=== PATIENT | female | born 1995 | race Caucasian/White ===

== ENCOUNTER 2017-02-03 16:41 | Emergency (ER) | payer OTHER, MEDICAID ==
[2017-02-03] MEDS ORDERED: IBUPROFEN 400 MG TABLET PO STA (17:10)
[2017-02-03] MEDS ORDERED: PHENAZOPYRIDINE 100 MG TABLET PO STA (17:10)
[2017-02-03] MEDS ORDERED: SULFAMETH/TRIMETH DS 800/160 MG TABLET PO STA (17:10)
[2017-02-03] MEDS ORDERED: ONDANSETRON ODT 4 MG TABLET TL STA (17:13)
[2017-02-03] MEDS ORDERED: ONDANSETRON ODT 4 MG TABLET ONE ×2 (17:17→17:18)
[2017-02-03] MEDS ORDERED: IBUPROFEN 400 MG TABLET PO ONE (17:17)
[2017-02-03] MEDS ORDERED: PHENAZOPYRIDINE 100 MG TABLET PO ONE (17:18)
[2017-02-03] MEDS ORDERED: SULFAMETH/TRIMETH DS 800/160 MG TABLET PO ONE (17:18)
== END 2017-02-03 17:51 | disposition home or self-care (01) ==
DX: R30.0 Dysuria (principal); N30.00 Acute cystitis without hematuria; F17.200 Nicotine dependence, unspecified, uncomplicated
CPT/HCPCS: 81001; 87086; 99283; A9270; Q0162

== ENCOUNTER 2017-02-09 00:52 | Emergency (ER) | payer OTHER, MEDICAID ==
[2017-02-09] MEDS ORDERED: SODIUM CHLORIDE 0.9% 1,000 ML IV STA ×2 (01:36→02:35)
[2017-02-09] MEDS ORDERED: ONDANSETRON 4 MG/2 ML VIAL IVP STA ×2 (01:36→04:00)
[2017-02-09] MEDS ORDERED: FAMOTIDINE 20 MG/50 ML 50 ML IV ONE ×2 (01:37→01:43)
[2017-02-09] MEDS ORDERED: ONDANSETRON 4 MG/2 ML VIAL ONE ×2 (01:43→04:02)
[2017-02-09] MEDS ORDERED: IOPAMIDOL-300 100 ML VIAL IVP ONE (03:12)
[2017-02-09] MEDS ORDERED: KETOROLAC 60 MG/2 ML VIAL IVP STA (03:59)
[2017-02-09] MEDS ORDERED: KETOROLAC 30 MG/ML VIAL ONE (04:02)
== END 2017-02-09 04:17 | disposition home or self-care (01) ==
DX: R11.2 Nausea with vomiting, unspecified (principal); R07.9 Chest pain, unspecified; R06.00 Dyspnea, unspecified; F17.200 Nicotine dependence, unspecified, uncomplicated
CPT/HCPCS: 36415; 71020; 71275; 80053; 80320; 82009; 83690; 85025; 96374; 96375; 96376; 99283; 99284; Q9967

== ENCOUNTER 2018-06-05 12:45 | Emergency (ER) | payer MEDICAID, OTHER ==
[2018-06-05 13:39] LABS: BILIRUBIN,URINE NEGATIVE (NEGATIVE); GLUCOSE, URINE (UA) NEGATIVE (NEGATIVE); KETONES,URINE (UA) 15 mg/dL (NEGATIVE); LEUKOCYTE ESTERASE, URINE NEGATIVE (NEGATIVE); NITRITE,URINE NEGATIVE (NEGATIVE); OCCULT BLOOD,URINE NEGATIVE (NEGATIVE); PROTEIN,URINE NEGATIVE (NEGATIVE); UROBILINOGEN,URINE 2 E.U./dL (NORMAL)
--- NOTE | 2018-06-05 13:40 | ED Physician Documentation ---
History of Present Illness - Stated complaint Stated Complaint: VOMITING - Chief complaint Chief Complaint: Abd Pain - Additonal information Additional information: hx from pt 22 y/o f to ED with 2 CC 1) UTI sx - seen in clinic yesterday - dip neg - cx pending - no pelvic or STD testing as pt told PMD there was no chance she could have been exposed because she was monogamous - sx persist - no fever no flank pain - on OCP 2) after drinking alcohol last night developed epigastric pain and then vomited dark blood and then brown old blood, no blood in BM, feels a little weak Review of Systems Constitutional: denies: Fever Cardiac: denies: Chest pain / pressure GI: reports: Abdominal Pain (epigastric), Hematemesis. denies: Bloody / black stool : reports: Dysuria, LMP (05/19). 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 : None HEENT: None Psych: Depression, Anxiety, Panic attacks Derm: None - Past Surgical History Past Surgical History: Yes - Present Medications Home Medications: Ambulatory Orders Medication Instructions Recorded Confirmed Bcp 02/03/17 Sertraline [Zoloft] 25 mg PO DAILY 02/03/17 02/09/17 Ondansetron HCl [Zofran] 4 mg PO Q6HR PRN #14 tablet 02/09/17 Ondansetron Odt [Zofran] 4 mg TL Q6H PRN #10 tablet 06/05/18 Sucralfate 1 gm PO ACHS #120 tablet 06/05/18 raNITIdine [Zantac] 150 mg PO BID #60 tablet 06/05/18 - Allergies Allergies/Adverse Reactions: Allergies Allergy/AdvReac Type Severity Reaction Status Date / Time No Known Drug Allergies Allergy Verified 02/09/17 01:13 - Social History Does the pt smoke?: Yes Smoking Status: Current every day smoker Does the pt drink ETOH?: Yes Does the pt have substance abuse?: Yes - Immunizations Immunizations are current?: Yes - POLST Patient has POLST: No PD ED PE NORMAL - Vitals Vital signs reviewed: Yes - Cardiac Cardiac: RRR - Respiratory Respiratory: No respiratory distress, Clear bilaterally - Abdomen Abdomen: Soft, Other (mid TTP epigastric and mild TTP suprapubic) - Back Back: No CVA TTP - Neuro Neuro: Alert and oriented X 3 Results - Vitals Vitals: Vital Signs - 24 hr 06/05/18 13:01 Temperature 36.6 C Heart Rate 66 Respiratory 16 Rate Blood Pressure 121/58 L O2 Saturation 99 Oxygen O2 Source Room air - Labs Labs: Laboratory Tests 06/05/18 06/05/18 06/05/18 13:15 13:15 13:50 WBC 11.0 H RBC 4.47 Hgb 13.2 Hct 39.5 MCV 88.2 MCH 29.4 MCHC 33.4 RDW 13.6 Plt Count 280 MPV 7.8 L Neut # (Auto) 9.0 H Lymph # (Auto) 1.4 L [place] # (Auto) 0.5 Eos # (Auto) 0.0 Baso # (Auto) 0.0 Absolute Nucleated RBC 0.00 Nucleated RBC % 0.0 Sodium Potassium Chloride Carbon Dioxide Anion Gap BUN Creatinine Estimated GFR (MDRD) Glucose Calcium Total Bilirubin AST ALT Alkaline Phosphatase Total Protein Albumin Globulin Albumin/Globulin Ratio Lipase Urine Color DARK YELLOW Urine Clarity CLEAR Urine pH 8.0 H Ur Specific [place] 1.020 1.020 Urine Protein NEGATIVE Urine Glucose (UA) NEGATIVE Urine Ketones 15 H Urine Occult Blood NEGATIVE Urine Nitrite NEGATIVE Urine Bilirubin NEGATIVE Urine Urobilinogen 2 H Ur Leukocyte Esterase NEGATIVE Ur Microscopic Review NOT INDICATED Urine Culture Comments NOT INDICATED Urine HCG, Qual NEGATIVE 06/05/18 13:50 WBC RBC Hgb Hct MCV MCH MCHC RDW Plt Count MPV Neut # (Auto) Lymph # (Auto) [place] # (Auto) Eos # (Auto) Baso # (Auto) Absolute Nucleated RBC Nucleated RBC % Sodium 136 Potassium 3.6 Chloride 103 Carbon Dioxide 24 Anion Gap 9.0 BUN 9 Creatinine 0.7 Estimated GFR (MDRD) 107 Glucose 145 H Calcium 9.1 Total Bilirubin 1.5 H AST 22 ALT 11 Alkaline Phosphatase 47 Total Protein 8.0 Albumin 4.3 Globulin 3.7 Albumin/Globulin Ratio 1.2 Lipase 18 L Urine Color Urine Clarity Urine pH Ur Specific [place] Urine Protein Urine Glucose (UA) Urine Ketones Urine Occult Blood Urine Nitrite Urine Bilirubin Urine Urobilinogen Ur Leukocyte Esterase Ur Microscopic Review Urine Culture Comments Urine HCG, Qual - Rads (name of study) ruq sono Radiology: See rad report (nl GB) PD MEDICAL DECISION MAKING - Sepsis Event Vital Signs: Vital Signs - 24 hr 06/05/18 13:01 Temperature 36.6 C Heart Rate 66 Respiratory 16 Rate Blood Pressure 121/58 L O2 Saturation 99 Oxygen O2 Source Room air Departure - Departure Disposition: Home, Self Care Clinical Impression: Hemorrhagic gastritis Qualifiers: Gastritis type: alcoholic Chronicity: acute Qualified Code(s): K29.21 - Alcoholic gastritis with bleeding Condition: Good Instructions: ED PUD Vs Gastritis Follow-Up: Felicity Reza MD [Primary Care Provider] - Giovanni Velazquez MD [Provider Admit Priv/Credential] - Prescriptions: Ondansetron Odt [Zofran] 4 mg TL Q6H PRN #10 tablet PRN Reason: Nausea / Vomiting raNITIdine [Zantac] 150 mg PO BID #60 tablet Sucralfate 1 gm PO ACHS #120 tablet Comments: I called your doctors office and the urine culture is not resulted yet - but the antibiotics seem to be working because there is no bacteria on the urine sample today - we are also running culture tests and the ER staff will call you if different antibiotics are needed The blood count was fine - I think it is safe for you to go home on medications to help your stomach heal. If you continue to have upper abdominal pain and / or vomit or poop more blood you should call the surgery office to schedule an appointment and discuss getting a scope of your stomach The gallbladder ultrasound was fine Return to the ER if worse
[2018-06-05 13:41] LABS: CLARITY,URINE CLEAR (CLEAR)
[2018-06-05] MEDS ORDERED: FAMOTIDINE 20 MG TABLET PO STA (13:41)
[2018-06-05] MEDS ORDERED: SUCRALFATE 1 GM/10 ML UDC PO STA (13:41)
[2018-06-05] MEDS ORDERED: ONDANSETRON ODT 4 MG TABLET TL STA (13:41)
[2018-06-05 13:42] LABS: HCG UR QUAL NEGATIVE
[2018-06-05 13:57] LABS: BASOPHILS % (AUTO) 0.4 %; EOSINOPHILS % (AUTO) 0.1 %; HGB - HEMOGLOBIN 13.2 g/dL (12.0-16.0); LYMPHOCYTES # (AUTO) 1.4 10^3/uL (1.5-3.5); MEAN CORPUSCULAR HEMOGLOBIN 29.4 pg (27.0-31.0); MEAN CORPUSCULAR HGB CONC 33.4 g/dL (32.0-36.0); MEAN CORPUSCULAR VOLUME 88.2 fL (81.0-99.0); MEAN PLATELET VOLUME 7.8 fL (7.9-10.8); MONOCYTES # (AUTO) 0.5 10^3/uL (0.0-1.0); MONOCYTES % (AUTO) 4.7 %; NEUTROPHILS % (AUTO) 81.8 %; PLT - PLATELET COUNT 280 10^3/uL (130-450); RED BLOOD COUNT 4.47 10^6/uL (4.20-5.40); RED CELL DISTRIBUTION WIDTH 13.6 % (12.0-15.0)
[2018-06-05 14:09] LABS: ALBUMIN 4.3 g/dL (3.2-5.5); ALBUMIN/GLOBULIN RATIO 1.2 (1.0-2.2); BILIRUBIN,TOTAL 1.5 mg/dL (0.2-1.0); CALCIUM 9.1 mg/dL (8.5-10.3); CREATININE 0.7 mg/dL (0.4-1.0)
--- NOTE | 2018-06-05 18:42 | Ultrasound Report ---
Procedure Date: 06/05/2018 Accession Number: [id number] / [id number] Procedure: US - Abdomen Limited CPT Code: FULL RESULT: EXAM: ABDOMEN ULTRASOUND LIMITED, RUQ EXAM DATE: 06/05/2018 05:28 PM. CLINICAL HISTORY: Ruq abd pain elev WBC elev bili. COMPARISON: None. TECHNIQUE: Real-time scanning was performed with static images obtained. FINDINGS: Liver: Normal in size and echotexture. 15.5 cm. Main portal vein flow: Hepatopetal. Gallbladder: Normal. No stones, wall thickening, or sonographic Romero's sign. Biliary System: CBD measures 3 mm. No intrahepatic or extrahepatic ductal dilatation. Other: No right hydronephrosis. The visualized pancreas is unremarkable. IMPRESSION: Normal. No cholelithiasis or cholecystitis. RADIA
[2018-06-05 19:03] VITALS: BP 135/72
== END 2018-06-05 19:02 | disposition home or self-care (01) ==
LOC: ED 12:45
DX: K29.21 Alcoholic gastritis with bleeding (principal); F17.200 Nicotine dependence, unspecified, uncomplicated
CPT/HCPCS: 36415; 76705; 80053; 81003; 81025; 83690; 85025; 87491; 87591; 99283; A9270; Q0162; 81001; 87086

== ENCOUNTER 2018-06-16 21:19 | Emergency (ER) | payer OTHER ==
[2018-06-16 21:34] LABS: MUDS CUTOFF CONCENTRATIONS CUTOFF CONC BELOW:
[2018-06-16 21:36] LABS: BILIRUBIN,URINE NEGATIVE (NEGATIVE); GLUCOSE, URINE (UA) NEGATIVE (NEGATIVE); KETONES,URINE (UA) NEGATIVE (NEGATIVE); LEUKOCYTE ESTERASE, URINE TRACE (NEGATIVE); NITRITE,URINE NEGATIVE (NEGATIVE); OCCULT BLOOD,URINE TRACE-INTA (NEGATIVE); PH,URINE 5.5 PH (5.0-7.5); PROTEIN,URINE NEGATIVE (NEGATIVE); UROBILINOGEN,URINE 0.2 (NORMAL) E.U./dL (NORMAL)
[2018-06-16 21:38] LABS: BASOPHILS % (AUTO) 0.5 %; CLARITY,URINE HAZY (CLEAR); EOSINOPHILS # (AUTO) 0.1 10^3/uL (0.0-0.7); EOSINOPHILS % (AUTO) 0.8 %; HGB - HEMOGLOBIN 13.7 g/dL (12.0-16.0); LYMPHOCYTES # (AUTO) 2.5 10^3/uL (1.5-3.5); MEAN CORPUSCULAR HEMOGLOBIN 30.5 pg (27.0-31.0); MEAN CORPUSCULAR HGB CONC 34.6 g/dL (32.0-36.0); MEAN CORPUSCULAR VOLUME 88.3 fL (81.0-99.0); MONOCYTES # (AUTO) 0.4 10^3/uL (0.0-1.0); MONOCYTES % (AUTO) 4.8 %; NEUTROPHILS # (AUTO) 4.4 10^3/uL (1.5-6.6); NEUTROPHILS % (AUTO) 59.9 %; PLT - PLATELET COUNT 294 10^3/uL (130-450); RED BLOOD COUNT 4.49 10^6/uL (4.20-5.40); RED CELL DISTRIBUTION WIDTH 14.7 % (12.0-15.0); WHITE BLOOD COUNT 7.4 x10^3/uL (4.8-10.8)
[2018-06-16 21:50] LABS: BACTERIA,URINE Few /HPF (None Seen); RBC,URINE 0-5 /HPF (0-5); SQUAMOUS EPITHELIAL CELL,UR FEW Squamous (<= Few)
[2018-06-16 21:51] LABS: AMPHETAMINE SCREEN,URINE NEGATIVE (NEGATIVE); BENZODIAZEPINES SCREEN, URINE NEGATIVE (NEGATIVE); COCAINE SCREEN URINE NEGATIVE (NEGATIVE); METHADONE SCREEN, URINE NEGATIVE (NEGATIVE); METHAMPHETAMINES SCREEN, URINE NEGATIVE (NEGATIVE); OPIATE SCREEN, URINE NEGATIVE (NEGATIVE); OXYCODONE SCREEN, URINE NEGATIVE (NEGATIVE); PROPOXYPHENE SCREEN, URINE NEGATIVE (NEGATIVE); TRICYCLIC ANTIDEPRESSANT,URINE NEGATIVE (NEGATIVE)
[2018-06-16 22:00] LABS: ALKALINE PHOSPHATASE 46 IU/L (42-121); ALT ALANINE AMINOTRANSFERASE 11 IU/L (10-60); AST ASPARTATE AMINOTRANSFERASE 17 IU/L (10-42); BUN - BLOOD UREA NITROGEN 7 mg/dL (6-20); CALCIUM 9.1 mg/dL (8.5-10.3); CARBON DIOXIDE - CO2 26 mmol/L (21-32); CHLORIDE 105 mmol/L (101-111); CREATININE 0.7 mg/dL (0.4-1.0); GFR - MDRD 107 (>89); GLUCOSE 100 mg/dL (70-100); LIPASE 23 U/L (22-51); SALICYLATE < 6.0 mg/dL; SODIUM 142 mmol/L (135-145); TOTAL PROTEIN 8.1 g/dL (6.7-8.2)
--- NOTE | 2018-06-16 22:10 | ED Physician Documentation ---
History of Present Illness - Stated complaint Stated Complaint: MHE - Chief complaint Chief Complaint: MHE - History obtained from History obtained from: Patient - Additonal information Additional information: 22-year-old female was brought to the emergency department for evaluation of intoxication. The patient uses marijuana daily basis and recently has been consuming alcohol on a daily basis. The patient's mother this evening told her that she needed help. The patient then told her boyfriend that she felt worthless because of this. The police were called and the patient was brought to the emergency department for suicidal ideations and intoxication. The patient reports any suicidal ideations or attempts at self-harm. The patient denies any acute medical complaints. 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: Yes - Immunizations Immunizations are current?: Yes - POLST Patient has POLST: No PD ED PE NORMAL - General General: Alert and oriented X 3, No acute distress - HEENT HEENT: Atraumatic, PERRL, EOMI, Ears normal - Neck Neck: Supple, no meningeal sign - Cardiac Cardiac: RRR - Respiratory Respiratory: No respiratory distress - Derm Derm: Normal color - Extremities Extremities: No deformity, Normal ROM s pain - Neuro Neuro: Alert and oriented X 3, 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, No motor deficit, Normal speech - Psych Psych: Normal mood, Normal affect Results - Vitals Vitals: Vital Signs - 24 hr 06/16/18 06/16/18 21:20 22:20 Temperature 36.4 C L Heart Rate 109 H 90 Respiratory 22 18 Rate Blood Pressure 137/88 H 120/88 H O2 Saturation 100 100 Oxygen O2 Source Room air - Labs Labs: Laboratory Tests 06/16/18 06/16/18 06/16/18 21:30 21:30 21:30 WBC 7.4 RBC 4.49 Hgb 13.7 Hct 39.6 MCV 88.3 MCH 30.5 MCHC 34.6 RDW 14.7 Plt Count 294 MPV 8.0 Neut # (Auto) 4.4 Lymph # (Auto) 2.5 [place] # (Auto) 0.4 Eos # (Auto) 0.1 Baso # (Auto) 0.0 Absolute Nucleated RBC 0.00 Nucleated RBC % 0.1 Sodium 142 Potassium 3.5 Chloride 105 Carbon Dioxide 26 Anion Gap 11.0 BUN 7 Creatinine 0.7 Estimated GFR (MDRD) 107 Glucose 100 Calcium 9.1 Total Bilirubin 1.0 AST 17 ALT 11 Alkaline Phosphatase 46 Total Protein 8.1 Albumin 4.0 Globulin 4.1 Albumin/Globulin Ratio 1.0 Lipase 23 Serum HCG, Qual NEGATIVE Urine Color YELLOW Urine Clarity HAZY Urine pH 5.5 Ur Specific [place] 1.010 Urine Protein NEGATIVE Urine Glucose (UA) NEGATIVE Urine Ketones NEGATIVE Urine Occult Blood TRACE-INTA Urine Nitrite NEGATIVE Urine Bilirubin NEGATIVE Urine Urobilinogen 0.2 (NORMAL) Ur Leukocyte Esterase TRACE H Urine RBC 0-5 Urine WBC 4-5 Ur Squamous Epith Cells FEW Squamous Urine Bacteria Few Ur Microscopic Review INDICATED Urine Culture Comments INDICATED Salicylates < 6.0 Urine Opiates Screen NEGATIVE Ur Oxycodone Screen NEGATIVE Urine Methadone Screen NEGATIVE Ur Propoxyphene Screen NEGATIVE Acetaminophen < 10 L Ur Barbiturates Screen NEGATIVE Ur Tricyclics Screen NEGATIVE Ur Phencyclidine Scrn NEGATIVE Ur Amphetamine Screen NEGATIVE U Methamphetamines Scrn NEGATIVE U Benzodiazepines Scrn NEGATIVE Urine Cocaine Screen NEGATIVE U Cannabinoids Screen POSITIVE H Ethyl Alcohol 251.8 PD MEDICAL DECISION MAKING - ED course ED course: The patient Was intoxicated this evening, the patient denies having any suicidal or homicidal ideations. The patient's mother is here, the patient's mother feels comfortable taking the child home with her. The patient's mother sober. The patient's mother feels comfortable assuming responsibility and will monitor the child at her residence. The patient has an appointment tomorrow with her primary care physician. I discussed warning signs and recommended returning to the emergency department immediately for worsening or any concerns - Sepsis Event Vital Signs: Vital Signs - 24 hr 06/16/18 06/16/18 21:20 22:20 Temperature 36.4 C L Heart Rate 109 H 90 Respiratory 22 18 Rate Blood Pressure 137/88 H 120/88 H O2 Saturation 100 100 Oxygen O2 Source Room air Departure - Departure Disposition: 01 Home, Self Care Clinical Impression: Intoxication Condition: Good Instructions: ED Alcohol Intoxication Follow-Up: Felicity Reza MD [Primary Care Provider] - Comments: Please return to the emergency department for worsening symptoms or any concerns
[2018-06-16 22:49] LABS: ACETAMINOPHEN < 10 ug/mL (10-30); HCG,QUALITATIVE BLOOD NEGATIVE
[2018-06-16 22:56] VITALS: BP 121/85
== END 2018-06-16 22:55 | disposition home or self-care (01) ==
LOC: EDUNIT# → ED 21:19
DX: F10.120 Alcohol abuse with intoxication, uncomplicated (principal); F12.90 Cannabis use, unspecified, uncomplicated; F17.200 Nicotine dependence, unspecified, uncomplicated
CPT/HCPCS: 36415; 80053; 80306; 80307; 80320; 80329; 81001; 81003; 83690; 84703; 85025; 87086; 99283; 99284

== ENCOUNTER 2018-11-17 12:25 | Emergency (ER) | payer MEDICAID, OTHER ==
[2018-11-17] MEDS ORDERED: oxyCODONE 5 MG TABLET PO STA (12:55)
--- NOTE | 2018-11-17 12:58 | ED Physician Documentation ---
History of Present Illness - Stated complaint Stated Complaint: JAW PX - Chief complaint Chief Complaint: Heent - History obtained from History obtained from: Patient, Family (mom) - History of Present Illness Timing: Other (She is a history of grinding her teeth and can has chronic jaw pain because of it. 3 days ago she was accidentally sort of head butted by her large dog and now has severe pain on the right side of the jaw. She actually saw an oral surgeon after that proved prescribed her painkillers but the pain is worse today. She also has right maxillary sinus tenderness and discharge as well as a low-grade fever at home. 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 : None HEENT: None Psych: Depression, Anxiety, Panic attacks Derm: None - Past Surgical History Past Surgical History: Yes - Present Medications Home Medications: Ambulatory Orders Medication Instructions Recorded Confirmed Amox/Clav 875/125 [Augmentin] 1 each PO Q12H #20 tablet 11/17/18 Hydrocodone/Acetaminophen 1 - 2 each PO Q6H PRN #14 tablet 11/17/18 [Hydrocodon-Acetaminophen 5-325] - Allergies Allergies/Adverse Reactions: Allergies Allergy/AdvReac Type Severity Reaction Status Date / Time No Known Drug Allergies Allergy Verified 11/17/18 12:32 - Social History Does the pt smoke?: Yes Smoking Status: Current every day smoker Does the pt drink ETOH?: Yes Does the pt have substance abuse?: Yes - Immunizations Immunizations are current?: Yes - POLST Patient has POLST: No PD ED PE NORMAL - Vitals Vital signs reviewed: Yes - General General: Alert and oriented X 3, No acute distress - HEENT HEENT: PERRL, EOMI, Ears normal, Other (Tender over the right maxillary sinus with lots of rhinorrhea, she is tender over the mandible. No obvious dental injury or infection.) - Neck Neck: Supple, no meningeal sign, No bony TTP - Neuro Neuro: Alert and oriented X 3, Normal speech - Psych Psych: Normal mood, Normal affect Results - Vitals Vitals: Vital Signs - 24 hr 01/13/19 12:30 Temperature 37.1 C Heart Rate 97 Respiratory 18 Rate Blood Pressure 140/86 H O2 Saturation 98 Oxygen O2 Source Room air - Rads (name of study) Mandible XR Radiology: EMP read contemporaneously (normal) Departure - Departure Disposition: 01 Home, Self Care Clinical Impression: Contusion of mandibular joint area Qualifiers: Encounter type: initial encounter Qualified Code(s): S00.83XA - Contusion of other part of head, initial encounter Sinusitis Qualifiers: Sinusitis location: maxillary Chronicity: acute Recurrence: non-recurrent Qual ified Code(s): J01.00 - Acute maxillary sinusitis, unspecified Condition: Good Instructions: ED Sinusitis Abx Tx Prescriptions: Amox/Clav 875/125 [Augmentin] 1 each PO Q12H #20 tablet Hydrocodone/Acetaminophen [Hydrocodon-Acetaminophen 5-325] 1 - 2 each PO Q6H PRN #14 tablet PRN Reason: pain Comments: Follow-up with the oral surgeon this week. Return for new or worsening symptoms. Do not drink or drive while taking narcotic pain medication. Note that many narcotic pain relievers also contain Tylenol/acetaminophen. Please ensure that your total dose of acetaminophen from all sources does not exceed 3 g (3000 mg) per day. You may get constipated while on this medication. Take a stool softener such as Colace twice a day while you are on it. Also add an [id number]-rjudlrt laxative such as senna or MiraLAX on any day that you do not have a bowel movement. If you received a narcotic pain medication or sedative while in the emergency department, do not drive for the next 24 hours. Your blood pressure was elevated today on check into the emergency department. This does not mean that you have hypertension, it is a common phenomenon to come to the emergency department and have elevated blood pressure. I recommend that you see your primary care physician within the week to have it rechecked when you are feeling better.
--- NOTE | 2018-11-17 14:04 | XRAY Report ---
Reason: jaw inj Procedure Date: 11/17/2018 Accession Number: [id number] / [id number] Procedure: XR - Mandible Bilat CPT Code: FULL RESULT: EXAM: MANDIBLE RADIOGRAPHY EXAM DATE: 11/17/2018 01:17 PM. HISTORY: Jaw injury. COMPARISONS: None. TECHNIQUE: 4 views. FINDINGS: Bones: No fractures or bone lesions. Temporomandibular Joints: The temporomandibular joints appear symmetric and within normal limits. Sinuses: Within normal limits. Other: Within normal limits. IMPRESSION: No apparent radiographic abnormality. RADIA
[2018-11-17 14:22] VITALS: BP 130/88
== END 2018-11-17 14:21 | disposition home or self-care (01) ==
LOC: ED 12:25
DX: S00.83XA Contusion of other part of head, initial encounter (principal); W54.1XXA Struck by dog, initial encounter; J01.00 Acute maxillary sinusitis, unspecified; F17.200 Nicotine dependence, unspecified, uncomplicated; R03.0 Elevated blood-pressure reading, without diagnosis of hypertension
CPT/HCPCS: 70110; 99283; A9270

== ENCOUNTER 2019-01-30 11:54 | Emergency (ER) | payer MEDICAID, OTHER ==
[2019-01-30 12:23] LABS: BASOPHILS # (AUTO) 0.1 10^3/uL (0.0-0.1); BASOPHILS % (AUTO) 1.2 %; EOSINOPHILS # (AUTO) 0.1 10^3/uL (0.0-0.7); EOSINOPHILS % (AUTO) 1.4 %; HGB - HEMOGLOBIN 14.9 g/dL (12.0-16.0); LYMPHOCYTES # (AUTO) 0.9 10^3/uL (1.5-3.5); MEAN CORPUSCULAR HEMOGLOBIN 29.2 pg (27.0-31.0); MEAN CORPUSCULAR HGB CONC 33.8 g/dL (32.0-36.0); MEAN CORPUSCULAR VOLUME 86.4 fL (81.0-99.0); MEAN PLATELET VOLUME 8.3 fL (7.9-10.8); MONOCYTES # (AUTO) 0.8 10^3/uL (0.0-1.0); MONOCYTES % (AUTO) 11.2 %; NEUTROPHILS # (AUTO) 5.6 10^3/uL (1.5-6.6); NEUTROPHILS % (AUTO) 74.2 %; PLT - PLATELET COUNT 257 10^3/uL (130-450); RED BLOOD COUNT 5.11 10^6/uL (4.20-5.40); RED CELL DISTRIBUTION WIDTH 15.4 % (12.0-15.0); WHITE BLOOD COUNT 7.5 x10^3/uL (4.8-10.8)
[2019-01-30 12:26] LABS: BILIRUBIN,URINE NEGATIVE (NEGATIVE); GLUCOSE, URINE (UA) NEGATIVE (NEGATIVE); KETONES,URINE (UA) NEGATIVE (NEGATIVE); LEUKOCYTE ESTERASE, URINE NEGATIVE (NEGATIVE); NITRITE,URINE NEGATIVE (NEGATIVE); OCCULT BLOOD,URINE SMALL (NEGATIVE); PROTEIN,URINE NEGATIVE (NEGATIVE); UROBILINOGEN,URINE 0.2 (NORMAL) E.U./dL (NORMAL)
[2019-01-30 12:36] LABS: ALBUMIN 4.4 g/dL (3.2-5.5); ALBUMIN/GLOBULIN RATIO 1.2 (1.0-2.2); BILIRUBIN,TOTAL 0.9 mg/dL (0.2-1.0); CALCIUM 9.1 mg/dL (8.5-10.3); CREATININE 0.7 mg/dL (0.4-1.0); TOTAL PROTEIN 8.2 g/dL (6.7-8.2)
[2019-01-30 12:43] LABS: CLARITY,URINE HAZY (CLEAR); HCG UR QUAL NEGATIVE
[2019-01-30 12:44] LABS: BACTERIA,URINE Many /HPF (None Seen); RBC,URINE 0-5 /HPF (0-5); SQUAMOUS EPITHELIAL CELL,UR MANY Squamous (<= Few)
[2019-01-30 12:45] LABS: CRYSTALS,URINE 11-25 Ca Oxalate /LPF; MUCUS,URINE Few Strands
[2019-01-30] MEDS ORDERED: MECLIZINE 12.5 MG TABLET PO STA (13:33)
[2019-01-30] MEDS ORDERED: ONDANSETRON ODT 4 MG TABLET TL STA (13:33)
[2019-01-30] MEDS ORDERED: DEXAMETHASONE 10 MG/ML VIAL PO STA (13:33)
--- NOTE | 2019-01-30 13:36 | ED Physician Documentation ---
PD HPI NVD - Stated complaint Stated Complaint: VOMITING - Chief complaint Chief Complaint: Abd Pain - History obtained from History obtained from: Patient - History of Present Illness Timing - onset: How many days ago (2) Timing - duration: Days (2) Timing - details: Gradual onset, Still present Associated symptoms: Dizzy. No: Fever, Abdominal pain Contributing factors: No: Sick contact Improved by: Laying still Worsened by: Moving Similar symptoms before: Diagnosis (gastroentertitis) Recently seen: Not recently seen - Additonal information Additional information: Previously well 23-year-old female has developed acute dizziness followed by nausea and vomiting about 2 days ago. She has had some diarrhea with this as well. Her dizziness persists and she has some pain in her right ear. She denies any cough or congestion. She has not had a fever. Review of Systems Constitutional: denies: Fever, Chills, Myalgias Eyes: denies: Decreased vision Ears: reports: Ear pain. denies: Loss of hearing Nose: denies: Rhinorrhea / runny nose, Congestion Throat: denies: Sore throat Cardiac: denies: Chest pain / pressure, Palpitations Respiratory: denies: Dyspnea, Cough GI: reports: Nausea, Vomiting, Diarrhea. 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 : None HEENT: None Psych: Depression, Anxiety, Panic attacks Derm: None - Past Surgical History Past Surgical History: Yes - Present Medications Home Medications: Ambulatory Orders Medication Instructions Recorded Confirmed Amox/Clav 875/125 [Augmentin] 1 each PO Q12H #20 tablet 11/17/18 Hydrocodone/Acetaminophen 1 - 2 each PO Q6H PRN #14 tablet 11/17/18 [Hydrocodon-Acetaminophen 5-325] Meclizine [Antivert] 25 mg PO Q6H PRN #20 tablet 01/30/19 Ondansetron Odt [Zofran] 4 mg TL Q6H PRN #10 tablet 01/30/19 - Allergies Allergies/Adverse Reactions: Allergies Allergy/AdvReac Type Severity Reaction Status Date / Time No Known Drug Allergies Allergy Verified 01/30/19 12:01 - Social History Does the pt smoke?: Yes Smoking Status: Current every day smoker Does the pt drink ETOH?: Yes Does the pt have substance abuse?: Yes - Immunizations Immunizations are current?: Yes - POLST Patient has POLST: No PD ED PE NORMAL - Vitals Vital signs reviewed: Yes (hypertensive) - General General: Alert and oriented X 3, No acute distress, Well developed/nourished - HEENT HEENT: Atraumatic, PERRL, EOMI, Other (ear canals are tiny and crocked. There are 3 beats of nystagmus to the right. 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, No motor deficit, No sensory deficit, Normal speech Eye Opening: Spontaneous Motor: Obeys Commands Verbal: Oriented GCS Score: 15 - Psych Psych: Normal mood, Normal affect Results - Vitals Vitals: Vital Signs - 24 hr 01/30/19 01/30/19 11:59 13:48 Temperature 36.4 C L Heart Rate 87 Respiratory 18 18 Rate Blood Pressure 137/86 H O2 Saturation 99 Oxygen O2 Source Room air - Labs Labs: Laboratory Tests 01/30/19 01/30/19 01/30/19 12:14 12:14 12:17 WBC 7.5 RBC 5.11 Hgb 14.9 Hct 44.1 MCV 86.4 MCH 29.2 MCHC 33.8 RDW 15.4 H Plt Count 257 MPV 8.3 Neut # (Auto) 5.6 Lymph # (Auto) 0.9 L [place] # (Auto) 0.8 Eos # (Auto) 0.1 Baso # (Auto) 0.1 Absolute Nucleated RBC 0.00 Nucleated RBC % 0.0 Sodium 134 L Potassium 3.6 Chloride 99 L Carbon Dioxide 24 Anion Gap 11.0 BUN 8 Creatinine 0.7 Estimated GFR (MDRD) 106 Glucose 102 H Calcium 9.1 Total Bilirubin 0.9 AST 21 ALT 14 Alkaline Phosphatase 53 Total Protein 8.2 Albumin 4.4 Globulin 3.8 Albumin/Globulin Ratio 1.2 Lipase 23 Urine Color YELLOW Urine Clarity HAZY Urine pH 6.0 Ur Specific [place] >=1.030 H Urine Protein NEGATIVE Urine Glucose (UA) NEGATIVE Urine Ketones NEGATIVE Urine Occult Blood SMALL H Urine Nitrite NEGATIVE Urine Bilirubin NEGATIVE Urine Urobilinogen 0.2 (NORMAL) Ur Leukocyte Esterase NEGATIVE Urine RBC 0-5 Urine WBC 0-3 Ur Squamous Epith Cells MANY Squamous H Urine Crystals 11-25 Ca Oxalate Urine Bacteria Many H Urine Mucus Few Strands Ur Microscopic Review INDICATED Urine Culture Comments NOT INDICATED Urine HCG, Qual NEGATIVE Procedures - IVC sono (time) 1330 Bedside IVC sono: IVC measures (cm) (0.93), IVC collapsed c insp (cm) (complete), Dehydration (est 1-2 liter deficit.) PD MEDICAL DECISION MAKING - ED course Complexity details: reviewed old records, reviewed results, re-evaluated patient, considered differential, d/w patient ED course: 23 y/o female with n/v/d and dizziness has some nystagmus on exam and she is amenable to attempting TL zofran and fluid challenge. She is administered dexamethasone 10 mg, meclizine 25 mg and Zofran 4 mg TL. She has improvement in her dizziness and her nausea and feels improved. Departure - Departure Disposition: 01 Home, Self Care Clinical Impression: Labyrinthitis of right ear, Dehydration Vomiting Qualifiers: Vomiting type: unspecified Vomiting Intractability: non-intractable Nausea presence: with nausea Qualified Code(s): R11.2 - Nausea with vomiting, unspecified Condition: Stable Instructions: ED Dehydration, ED Diet Vomiting Diarrhea, ED Labyrinthitis Follow-Up: Felicity Reza MD [Primary Care Provider] - Prescriptions: Meclizine [Antivert] 25 mg PO Q6H PRN #20 tablet PRN Reason: Dizziness Ondansetron Odt [Zofran] 4 mg TL Q6H PRN #10 tablet PRN Reason: Nausea / Vomiting Forms: Activity restrictions
[2019-01-30 14:26] VITALS: BP 127/78
== END 2019-01-30 14:24 | disposition home or self-care (01) ==
LOC: ED 11:54
DX: H83.01 Labyrinthitis, right ear (principal); E86.0 Dehydration; F17.200 Nicotine dependence, unspecified, uncomplicated
CPT/HCPCS: 36415; 80053; 81001; 81025; 83690; 85025; 99283; A9270; Q0162; 81003; 87086

== ENCOUNTER 2019-02-05 16:30 | Outpatient (CLI) | payer MEDICAID | END 2019-02-05 23:59 | disposition home or self-care (01) | LOC: LAB.R 16:30 | PROVIDERS: ATTEND Physician Assistant Medical | DX: Z20.2 Contact with and (suspected) exposure to infections with a predominantly sexual mode of transmission (principal) | CPT/HCPCS: 87491; 87591 ==

== ENCOUNTER 2019-02-06 08:00 | Outpatient (CLI) | payer MEDICAID ==
[2019-02-07 13:01] LABS: HIV AG/AB 4TH GEN NON-REACTIVE (NON-REACTIVE)
[2019-02-08 12:02] LABS: HSV 1 IGG TYPE SPECIFIC AB <0.90 index; HSV 2 IGG TYPE SPECIFIC AB <0.90 index
== END 2019-02-06 23:59 | disposition home or self-care (01) ==
LOC: LAB.WCP 08:00
PROVIDERS: ATTEND Physician Assistant Medical
DX: Z20.2 Contact with and (suspected) exposure to infections with a predominantly sexual mode of transmission (principal)
CPT/HCPCS: 36415; 81599; 86592; 86695; 86696; 87389

== ENCOUNTER 2019-02-14 11:28 | Emergency (ER) | payer MEDICAID ==
[2019-02-14] MEDS ORDERED: ALBUTEROL NEB 2.5 MG/3 ML INH STA (12:25)
[2019-02-14] MEDS ORDERED: BENZONATATE 100 MG CAPSULE PO STA (12:28)
--- NOTE | 2019-02-14 12:32 | ED Physician Documentation ---
PD HPI URI - Stated complaint Stated Complaint: COUGH - Chief complaint Chief Complaint: Resp - History obtained from History obtained from: Patient - History of Present Illness Timing - onset: How many days ago (3) Timing duration: Days (3) Timing details: Gradual onset Pain level max: 2 Pain level now: 2 Associated symptoms: Nasal congestion, Rhinorrhea, Dry cough, Dyspnea. No: Fever, Chills, Sore throat, Hemoptysis, Chest pain Contributing factors: Sick contact, COPD / asthma (has used inhalers, does smoke). 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 : None HEENT: None Psych: Depression, Anxiety, Panic attacks Derm: None - Past Surgical History Past Surgical History: Yes - Present Medications Home Medications: Ambulatory Orders Medication Instructions Recorded Confirmed Albuterol Sulf [Ventolin Hfa 1 - 2 puffs INH Q4HR PRN #1 inhaler 02/14/19 Inhaler] Benzonatate [Tessalon Perle] 100 - 200 mg PO TID PRN #30 capsule 02/14/19 - Allergies Allergies/Adverse Reactions: Allergies Allergy/AdvReac Type Severity Reaction Status Date / Time No Known Drug Allergies Allergy Verified 02/14/19 11:33 - Social History Does the pt smoke?: Yes Smoking Status: Current every day smoker Does the pt drink ETOH?: Yes Does the pt have substance abuse?: Yes - Immunizations Immunizations are current?: Yes - POLST Patient has POLST: No PD ED PE NORMAL - Vitals Vital signs reviewed: Yes - General General: Alert and oriented X 3, No acute distress - HEENT HEENT: Ears normal, Moist mucous membranes, Pharynx benign - Neck Neck: Supple, no meningeal sign - Cardiac Cardiac: RRR - Respiratory Respiratory: No respiratory distress, Other (dimished BS bibasilar) - Abdomen Abdomen: Soft, Non tender, Non distended - Derm Derm: Warm and dry - Extremities Extremities: No edema - Neuro Neuro: Alert and oriented X 3 - Psych Psych: Normal mood, Normal affect Results - Vitals Vitals: Vital Signs - 24 hr 02/14/19 02/14/19 02/14/19 11:32 12:43 13:14 Temperature 37.1 C 36.2 C L Heart Rate 108 H 90 96 Respiratory 22 18 18 Rate Blood Pressure 116/72 118/73 O2 Saturation 97 100 Oxygen O2 Source Room air PD MEDICAL DECISION MAKING - ED course Complexity details: re-evaluated patient, considered differential, d/w patient ED course: 23-year-old female is well-appearing, nontoxic. Afebrile. Feels better after nebulizer treatment. No hypoxia. No evidence of pneumonia. Will prescribe an inhaler for home and follow-up with her doctor for further care. Patient counseled regarding signs and symptoms for which I believe and urgent re- evaluation would be necessary. Patient with good understanding of and agreement to plan and is comfortable going home at this time This document was made in part using voice recognition software. While efforts are made to proofread this document, sound alike and grammatical errors may occur. Departure - Departure Disposition: Home, Self Care Clinical Impression: Viral URI with cough Condition: Good Instructions: ED URI Viral W Wheezing Follow-Up: Felicity Rzea MD [Primary Care Provider] - Within 1 week Prescriptions: Albuterol Sulf [Ventolin Hfa Inhaler] 1 - 2 puffs INH Q4HR PRN #1 inhaler PRN Reason: Shortness Of Air/Wheezing Benzonatate [Tessalon Perle] 100 - 200 mg PO TID PRN #30 capsule PRN Reason: Cough Comments: Use the medications as prescribed. Return if you worsen. Follow-up with your doctor for further care. Forms: Activity restrictions
[2019-02-14 13:15] VITALS: BP 118/73
== END 2019-02-14 13:25 | disposition home or self-care (01) ==
LOC: ED 11:28
DX: J06.9 Acute upper respiratory infection, unspecified (principal); B97.89 Other viral agents as the cause of diseases classified elsewhere; F17.200 Nicotine dependence, unspecified, uncomplicated
CPT/HCPCS: 94640; 94664; 99283; A9270

== ENCOUNTER 2022-04-05 18:12 | Emergency (ER) | payer MEDICAID, OTHER ==
[2022-04-05 18:33] VITALS: BP 154/78
--- NOTE | 2022-04-05 18:54 | ED Physician Documentation ---
History of Present Illness - Stated complaint Stated Complaint: DOG BITE ON FACE - Chief complaint Chief Complaint: Wound - History obtained from History obtained from: Patient - History of Present Illness Timing: Today Pain level max: 3 Pain level now: 1 - Additonal information Additional information: Patient is a 26-year-old female who presents to the emergency department after a dog bite to the face at work today. She denies any bleeding. She states that she has numbness around the left eye. She states that one of the teeth went into her right nostril. The other was on her forehead. No visual changes. Mild swelling to the right side of the face. Tetanus is up-to-date. She is not , breast-feeding or trying to become . 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: None : None HEENT: None Psych: Depression, Anxiety, Panic attacks Derm: None - Past Surgical History Past Surgical History: Yes - Present Medications Home Medications: Ambulatory Orders Medication Instructions Recorded Confirmed Amox/Clav 875/125 [Augmentin] 1 tab PO Q12H #14 tablet 04/05/22 - Allergies Allergies/Adverse Reactions: Allergies Allergy/AdvReac Type Severity Reaction Status Date / Time No Known Drug Allergies Allergy Verified 02/14/19 11:33 - Social History Does the pt smoke?: Yes Smoking Status: Current every day smoker Does the pt drink ETOH?: Yes Does the pt have substance abuse?: Yes - Immunizations Immunizations are current?: Yes - POLST Patient has POLST: No PD ED PE NORMAL - Vitals Vital signs reviewed: Yes - General General: Alert and oriented X 3, No acute distress - HEENT HEENT: PERRL, EOMI, Moist mucous membranes, Other (Small abrasion to the forehead and inner aspect of the right nare. No active bleeding. No laceration. Normal examination of the face.) - Neck Neck: Supple, no meningeal sign - Cardiac Cardiac: RRR - Respiratory Respiratory: No respiratory distress, Clear bilaterally - Derm Derm: Warm and dry - Neuro Neuro: Alert and oriented X 3, binman 2-12 intact - Psych Psych: Normal mood, Normal affect Results - Vitals Vitals: Vital Signs - 24 hr 04/05/22 18:30 Temperature 36.2 C L Heart Rate 74 Respiratory 16 Rate Blood Pressure 154/78 H O2 Saturation 100 Oxygen O2 Source Room air PD MEDICAL DECISION MAKING - ED course Complexity details: considered differential, d/w patient ED course: Patient with dog bite to the face. No lacerations to repair. She apparently did have some bleeding from the right nare, therefore will place on antibiotics. We will have her follow-up with her doctor for further care. Patient counseled regarding signs and symptoms for which I believe and urgent re-evaluation would be necessary. Patient with good understanding of and agreement to plan and is comfortable going home at this time This document was made in part using voice recognition software. While efforts are made to proofread this document, sound alike and grammatical errors may occur. Departure - Departure Disposition: 01 Home, Self Care Clinical Impression: Dog bite Qualifiers: Encounter type: initial encounter Qualified Code(s): W54.0XXA - Bitten by dog, initial encounter Condition: Good Instructions: ED Bite Animal General Follow-Up: your,doctor as needed [Other] Prescriptions: Amox/Clav 875/125 [Augmentin] 1 tab PO Q12H #14 tablet Comments: Please take all antibiotics until gone. You can use Motrin or Tylenol as needed for pain and/or swelling. Ice may help as well. Return if you worsen. This should improve over the next 24 hours. Your prescriptions were sent to [facility] in [place] Discharge Date/Time: 04/05/22 19:10
[2022-04-05] MEDS: AMOX/CLAV 875 MG/125 MG TABLET PO STA (18:58)
== END 2022-04-05 19:10 | disposition home or self-care (01) ==
LOC: ED 18:12
DX: S01.25XA Open bite of nose, initial encounter (principal); W54.0XXA Bitten by dog, initial encounter; Y99.0 Civilian activity done for income or pay; F17.200 Nicotine dependence, unspecified, uncomplicated
CPT/HCPCS: 1040M; 99282; A9270

== ENCOUNTER 2023-03-25 11:28 | Emergency (ER) | payer SELFPAY ==
--- NOTE | 2023-03-25 14:31 | ED Physician Documentation ---
PD HPI ABD PAIN - Stated complaint Stated Complaint: FEMALE - Chief complaint Chief Complaint: Abd Pain - History obtained from History obtained from: Patient - Additional information Additional information: The patient presents to the emergency department chief complaint of constipation. She feels as though she needs to have a bowel movement but just cannot push it out. She states the sensation started a few hours ago and she has faced great difficulty when trying to stool because she feels as though she has a large, hard impacted lump of stool in her rectum. The patient states that just prior to my arrival in the room, she was able to sit on the bedside commode and disimpact herself. She states that her anal area is sore but that she is feeling much better than she was when she came in. She points to a large output of stool in the bedside commode. The patient denies nausea or vomiting. No fevers or chills. She is not on any pain medications or iron supplements, she states. She states she has dealt with constipation on and off since childhood. No other complaints at this time. 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 : None HEENT: None Psych: Depression, Anxiety, Panic attacks Derm: None - Past Surgical History Past Surgical History: Yes - Present Medications Home Medications: Ambulatory Orders Medication Instructions Recorded Confirmed Amox/Clav 875/125 [Augmentin] 1 tab PO Q12H #14 tablet 04/05/22 Cefuroxime Axetil [Cefuroxime] 500 mg PO BID 7 Days #14 tablet 06/16/22 Chlorhexidine [Peridex] 15 ml PO BID #240 ml 06/16/22 Lidocaine Viscous 2% [Xylocaine 5 ml PO Q4H PRN #100 ml 06/16/22 Viscous 2%] Docusate Sodium 100Mg Capsule 100 mg PO DAILY PRN #30 cap 03/25/23 [Colace 100Mg Capsule] - Allergies Allergies/Adverse Reactions: Allergies Allergy/AdvReac Type Severity Reaction Status Date / Time No Known Drug Allergies Allergy Verified 03/25/23 11:43 - Social History Does the pt smoke?: Yes Smoking Status: Current every day smoker Does the pt drink ETOH?: Yes Does the pt have substance abuse?: Yes - Immunizations Immunizations are current?: Yes - POLST Patient has POLST: No PD ED PE NORMAL - Vitals Vital signs reviewed: Yes - General General: Alert and oriented X 3, No acute distress, Other (The patient is thin and appears to not be in very good health at baseline. She Is mildly disheveled, has multiple scabs on her face and is slightly drowsy in the ED.) - HEENT HEENT: PERRL - Neck Neck: Supple, no meningeal sign - Cardiac Cardiac: RRR, No murmur - Respiratory Respiratory: No respiratory distress, Clear bilaterally - Abdomen Abdomen: Soft, Non tender, Non distended - Derm Derm: Normal color, Warm and dry, No rash - Extremities Extremities: No deformity - Neuro Neuro: Other (Mildly drowsy, but answers questions appropriately. No gross deficits otherwise) - Psych Psych: Normal mood, Normal affect Results - Vitals Vitals: Vital Signs - 24 hr 03/25/23 03/25/23 11:41 14:38 Temperature 36.6 C Heart Rate 92 91 Respiratory 16 16 Rate Blood Pressure 134/79 H 150/77 H O2 Saturation 100 100 Oxygen O2 Source Room air PD Medical Decision Making - ED course Complexity details: considered differential, d/w patient ED course: The patient had presented to the emergency department with constipation and a probable impaction, but that by the time that I came to evaluate her, the patient had disimpacted herself and now had an empty rectum as far as I could palpate on digital rectal exam. She had a very large output of very dense, brown stool in the bedside commode and I did not feel any further intervention was indicated in the emergency department. The patient was given a prescription for Colace which was sent to the pharmacy of her choice. She was also advised that she can do home enemas. Departure - Departure Disposition: 01 Home, Self Care Clinical Impression: Constipation Qualifiers: Constipation type: unspecified constipation type Qualified Code(s): K59.00 - Constipation, unspecified Condition: Stable Instructions: ED Constipation Prescriptions: Docusate Sodium 100Mg Capsule [Colace 100Mg Capsule] 100 mg PO DAILY PRN #30 cap PRN Reason: Constipation Comments: Your prescription for stool softeners been electronically transmitted to the [facility] pharmacy in [place]. Discharge Date/Time: 03/25/23 14:38
[2023-03-25 14:38] VITALS: BP 150/77
== END 2023-03-25 14:38 | disposition home or self-care (01) ==
LOC: ED 11:28
DX: K59.00 Constipation, unspecified (principal); F17.200 Nicotine dependence, unspecified, uncomplicated
CPT/HCPCS: 99282; 99283